=== PATIENT | male | born 2000 | race Caucasian/White ===

== ENCOUNTER 2022-10-18 12:03 | Emergency (ER) | payer BC ==
[~2022-10-18] VITALS: Ht 185.4 cm; Wt 122.5 kg
[2022-10-18 12:22] VITALS: BP_SYST 129
--- NOTE | 2022-10-18 12:27 | NUR ---
ER at bedside examining patient.
--- NOTE | 2022-10-18 12:30 | NUR ---
PT presents to ed with report of abdominal pain radiating to lower back. per mother, reports he thought he hurt himself at work, went to [facility] thursday and informed them he "felt something" and prescribed motrin. Pt stated pain got worse thursday night, was referred to general surgeon (john copeland) and was scheduled for possible ct scan. pt also reports vomiting from pain. pt noted to ambulate from ed lobby to bed 5, steady gait. pt awake, a/o x4 and verbally responsive. no acute distress. breathing even and unlabored. safety measures in place. mother remains at bedside
--- NOTE | 2022-10-18 12:36 | NUR ---
lab at bedside
[2022-10-18 12:58] LABS: BASOPHILS % (AUTO) 0.8 % (0.0-2.0); EOSINOPHILS # (AUTO) 0.2 K/uL (0.0-0.4); HEMOGLOBIN 13.5 g/dL (14.0-18.0); LYMPHOCYTES % (AUTO) 34.9 % (20.5-51.5); MEAN CORPUSCULAR HEMOGLOBIN 28 pg (27-31); MEAN CORPUSCULAR HGB CONC 34 % (32-36); MEAN CORPUSCULAR VOLUME 83 fL (79.0-98.0); MONOCYTES # (AUTO) 0.7 K/uL (0.0-1.0); MONOCYTES % (AUTO) 11.5 % (1.7-9.3); NEUTROPHILS # (AUTO) 2.8 K/uL (1.8-7.7); NEUTROPHILS % (AUTO) 49.8 % (40.0-70.0); PLATELET COUNT (AUTO) 265 K/uL (130-430); RED CELL DISTRIBUTION WIDTH 13.5 % (9.0-15.0); WHITE BLOOD COUNT (AUTO) 5.7 K/uL (4.5-11.0)
[2022-10-18 13:13] LABS: CALCIUM 8.7 mg/dL (8.4-11.0); CREATININE 0.75 mg/dL (0.55-1.30)
[2022-10-18 13:27] LABS: ALBUMIN 3.7 g/dL (3.4-4.8); TOTAL BILIRUBIN 0.5 mg/dL (0.0-1.0)
[2022-10-18 13:46] LABS: BILIRUBIN,URINE NEGATIVE (NEGATIVE); BLOOD, URINE NEGATIVE (NEGATIVE); CLARITY/URINE SL CLOUDY (CLEAR); COLOR,URINE YELLOW (YELLOW); GLUCOSE,URINE NEGATIVE (NEGATIVE); KETONES,URINE NEGATIVE (NEGATIVE); LEUKOCYTE ESTERASE ,URINE NEGATIVE (NEGATIVE); NITRITE, URINE NEGATIVE (NEGATIVE); PH,URINE 7.5 (5.0-8.0); PROTEIN URINE NEGATIVE (NEGATIVE); UROBILINOGEN,URINE 0.2 (0.2-1.0)
[2022-10-18 14:03] VITALS: BP_SYST 130
--- NOTE | 2022-10-18 14:03 | NUR ---
discharge instructions reviewed with pt by md [facility]. pt verbalized understanding and denied questions.
== END 2022-10-18 14:03 | disposition home or self-care (01) ==
LOC: SED 12:03
DX: R10.33 Periumbilical pain (principal); Z79.899 Other long term (current) drug therapy
CPT/HCPCS: 36415; 76376; 80053; 81003; 83605; 85025; 87040; 99284